=== PATIENT | male | born 1975 | race African-American/Black ===

== ENCOUNTER 2018-11-24 14:34 | Emergency (ER) | payer OTHER, BC ==
--- NOTE | 2018-11-24 16:13 | ER Document Report ---
HPI - HPI Patient complains to provider of: finger pain Time Seen by Provider: 11/24/18 16:07 Onset: Just prior to arrival Onset/Duration: Sudden Quality of pain: Achy, Throbbing Severity: Moderate Pain Level: 3 Context: Patient presents emergency department with complaints of right middle finger pain. Patient reports he was at work when he dropped a frozen bag of cheese onto his finger on the back of the table. Patient complains of fingertip pain. No obvious deformity no swelling no erythema. Associated Symptoms: None Exacerbated by: Denies Relieved by: Denies Similar symptoms previously: No Recently seen / treated by doctor: No - CONSTITUTIONAL Constitutional: DENIES: Fever, Chills - EENT EENT: DENIES: Sore Throat, Ear Pain, Eye problems - NEURO Neurology: DENIES: Headache, Weakness, Vision blurred, Dizzinesss / Vertigo - CARDIOVASCULAR Cardiovascular: DENIES: Chest pain - RESPIRATORY Respiratory: DENIES: Trouble Breathing, Coughing - GASTROINTESTINAL Gastrointestinal: DENIES: Abdominal Pain, Black / Bloody Stools - URINARY Urinary: DENIES: Dysuria, Urgency, Frequency - MUSCULOSKELETAL Musculoskeletal: REPORTS: Extremity pain - right 3rd finger Past Medical History - General Information source: Patient - Social History Smoking Status: Unknown if Ever Smoked Chew tobacco use (# tins/day): No Frequency of alcohol use: None Drug Abuse: None Family History: Reviewed & Not Pertinent Patient has suicidal ideation: No Patient has homicidal ideation: No Pulmonary Medical History: Reports: Hx Asthma Renal/ Medical History: Denies: Hx Peritoneal Dialysis Past Surgical History: Reports: Hx Abdominal Surgery - Umbilical hernia repair as a child - Immunizations Hx Diphtheria, Pertussis, Tetanus Vaccination: Yes Vertical Provider Document - CONSTITUTIONAL Agree With Documented VS: Yes Exam Limitations: No Limitations General Appearance: WD/WN, No Apparent Distress - he is laughing smiling no distress - INFECTION CONTROL TRAVEL OUTSIDE OF THE [place] IN LAST 30 DAYS: No - HEENT HEENT: Atraumatic, Normocephalic - NECK Neck: Supple - RESPIRATORY Respiratory: No Respiratory Distress - CARDIOVASCULAR Cardiovascular: Regular Rate - MUSCULOSKELETAL/EXTREMETIES Musculoskeletal/Extremeties: MAEW, FROM, Tender - Right middle finger distally tender to palpation no obvious deformity good cap refill full range of motion no open wounds - NEURO Level of Consciousness: Awake, Alert, Appropriate Motor/Sensory: No Motor Deficit - DERM Integumentary: Warm, Dry Course - Re-evaluation Re-evalutation: 11/24/18 Tuft fracture noted. Splint placed. Patient was instructed on the tuft fracture and given a picture. He was instructed on the importance of follow-up with orthopedics Motrin for pain. He verbalized understanding to all instructions. Dictation of this chart was performed using voice recognition software; therefore, there may be some unintended grammatical errors. - Vital Signs Vital signs: Temp Pulse Resp BP Pulse Ox 98.1 F 73 15 143/88 H 98 11/24/18 15:17 11/24/18 15:17 11/24/18 15:17 11/24/18 15:17 11/24/18 15:17 - Diagnostic Test Radiology reviewed: Image reviewed, Reports reviewed - EXAM DESCRIPTION: FINGER RIGHT COMPLETED DATE/TIME: 11/24/2018 4:21 pm REASON FOR STUDY: right middle finger crush injury COMPARISON: None. NUMBER OF VIEWS: Three views. TECHNIQUE: AP, lateral, and oblique images acquired of the right third finger. LIMITATIONS: None. FINDINGS: MINERALIZATION: Normal. BONES: Minimally displaced fracture of the tuft. No worrisome bone lesions. SOFT TISSUES: No soft tissue swelling. No foreign body. OTHER: No other significant finding. IMPRESSION: MINIMALLY DISPLACED FRACTURE OF THE TUFT OF THE RIGHT 3RD FINGER. COMMENT: SITE OF TRAUMA/COMPLAINT MARKED/STAMP COMPLETED: YES. TECHNICAL DOCUMENTATION: JOB ID: [id number] [employer]- All Rights Reserved Reading location - IP/workstation name: [email or web address]- Procedures - Immobilization Right 3rd digit Pre-Proc Neuro Vasc Exam: Normal Immobilizer type: Finger splint (Static) Performed by: PCT Post-Proc Neuro Vasc Exam: Unchanged from pre-exam Alignment checked and good: Yes Discharge - Discharge Clinical Impression: Right finger crush injury, tuft fracture Condition: Stable Disposition: HOME, SELF-CARE Instructions: Crush Injury ([facility]), Use of Vyry-Wun-Zmphkue Ibuprofen ([facility]), Temporary Splint ([facility]), Tuft Fracture of the Finger ([facility]) Additional Instructions: *You have been evaluated for a finger injury tuft fracture *Maintain the splint for comfort *Rest/Ice/Elevate *Follow up with orthopedics-call for an appointment *Take motrin as indicated *Return to ED for worsening condition, changes, needs Forms: Return to Work
--- NOTE | 2018-11-24 16:31 | RADIOLOGY REPORT (SQ) ---
EXAM DESCRIPTION: FINGER RIGHT COMPLETED DATE/TIME: 11/24/2018 4:21 pm REASON FOR STUDY: right middle finger crush injury COMPARISON: None. NUMBER OF VIEWS: Three views. TECHNIQUE: AP, lateral, and oblique images acquired of the right third finger. LIMITATIONS: None. FINDINGS: MINERALIZATION: Normal. BONES: Minimally displaced fracture of the tuft. No worrisome bone lesions. SOFT TISSUES: No soft tissue swelling. No foreign body. OTHER: No other significant finding. IMPRESSION: MINIMALLY DISPLACED FRACTURE OF THE TUFT OF THE RIGHT 3RD FINGER. COMMENT: SITE OF TRAUMA/COMPLAINT MARKED/STAMP COMPLETED: YES. TECHNICAL DOCUMENTATION: JOB ID: [id number] [employer]- All Rights Reserved Reading location - IP/workstation name: [email or web address]
[2018-11-24 17:16] VITALS: BP 139/91
== END 2018-11-24 17:18 | disposition home or self-care (01) ==
LOC: ER 14:34
DX: S67.192A Crushing injury of right middle finger, initial encounter (principal); S62.632A Displaced fracture of distal phalanx of right middle finger, initial encounter for closed fracture; M79.644 Pain in right finger(s); W20.8XXA Other cause of strike by thrown, projected or falling object, initial encounter; Y93.89 Activity, other specified; Y99.0 Civilian activity done for income or pay; J45.909 Unspecified asthma, uncomplicated
CPT/HCPCS: 99283

== ENCOUNTER 2019-07-26 17:35 | Emergency (ER) | payer BC, OTHER ==
[2019-07-26 17:52] VITALS: BP 136/88
[2019-07-26] MEDS ORDERED: OXYCODONE-ACETAMINOPHEN 5-325 MG TABLET PO ONE (18:06)
[2019-07-26] MEDS ORDERED: CYCLOBENZAPRINE HCL 10 MG TABLET PO ONE (18:06)
--- NOTE | 2019-07-26 18:06 | ER Document Report ---
ED Medical Screen (RME) - General Chief Complaint: Groin Pain Stated Complaint: FALL/LEG PAIN Time Seen by Provider: 07/26/19 18:00 TRAVEL OUTSIDE OF THE [place] IN LAST 30 DAYS: No - Related Data Allergies/Adverse Reactions: No Known Allergies Allergy (Verified 11/24/18 14:44) Past Medical History - Social History Chew tobacco use (# tins/day): No Frequency of alcohol use: None Drug Abuse: None Pulmonary Medical History: Reports: Hx Asthma Renal/ Medical History: Denies: Hx Peritoneal Dialysis Past Surgical History: Reports: Hx Abdominal Surgery - Umbilical hernia repair as a child - Immunizations Hx Diphtheria, Pertussis, Tetanus Vaccination: Yes Physical Exam - Vital signs Vitals: Temp Pulse Resp BP Pulse Ox 97.6 F 75 18 136/88 H 99 07/26/19 17:51 07/26/19 17:51 07/26/19 17:51 07/26/19 17:51 07/26/19 17:51 Course - Vital Signs Vital signs: Temp Pulse Resp BP Pulse Ox 97.6 F 75 18 136/88 H 99 07/26/19 17:51 07/26/19 17:51 07/26/19 17:51 07/26/19 17:51 07/26/19 17:51
--- NOTE | 2019-07-26 18:15 | ER Document Report ---
ED Fall - General Chief Complaint: Groin Pain Stated Complaint: FALL/LEG PAIN Time Seen by Provider: 07/26/19 18:00 Primary Care Provider: [facility] [Provider Group] - Follow up in 1 week TRAVEL OUTSIDE OF THE [place] IN LAST 30 DAYS: No - HPI Notes: 44-year-old male to the emergency department with complaints of right groin pain that began tonight just prior to arrival. States he was walking in [facility] when he slipped on the wet floor and "did a split. He states that since then he has not been able to tolerate walking because of the pain in his groin. He denies any testicular pain. He denies any blunt trauma to his perineum or testicular area. He denies any nausea, vomiting. He denies any hip pain. He has not taken anything prior to arrival. - Related data Allergies/Adverse Reactions: No Known Allergies Allergy (Verified 11/24/18 14:44) Past Medical History - General Information source: Patient - Social History Smoking Status: Never Smoker Chew tobacco use (# tins/day): No Frequency of alcohol use: None Drug Abuse: None Family History: Reviewed & Not Pertinent Patient has suicidal ideation: No Patient has homicidal ideation: No Pulmonary Medical History: Reports: Hx Asthma Renal/ Medical History: Denies: Hx Peritoneal Dialysis Past Surgical History: Reports: Hx Abdominal Surgery - Umbilical hernia repair as a child - Immunizations Hx Diphtheria, Pertussis, Tetanus Vaccination: Yes Review of Systems - Review of Systems Constitutional: denies: Chills, Fever EENT: No symptoms reported Cardiovascular: denies: Chest pain, Palpitations, Heart racing, Orthopnea, Dyspnea, Syncope, Dizziness, Lightheaded Respiratory: denies: Cough, Short of breath Gastrointestinal: denies: Abdominal pain, Diarrhea, Nausea, Vomiting Genitourinary: denies: Frequency, Flank pain, Hematuria, Incontinence Musculoskeletal: See HPI, Muscle pain - Right groin strain. denies: Back pain Skin: No symptoms reported Hematologic/Lymphatic: No symptoms reported Neurological/Psychological: No symptoms reported -: Yes All other systems reviewed and negative Physical Exam - Vital signs Vitals: Temp Pulse Resp BP Pulse Ox 97.6 F 75 18 136/88 H 99 07/26/19 17:51 07/26/19 17:51 07/26/19 17:51 07/26/19 17:51 07/26/19 17:51 Interpretation: Normal - General General appearance: Appears well, Alert - HEENT Head: Normocephalic, Atraumatic Eyes: Normal Pupils: PERRL - Respiratory Respiratory status: No respiratory distress Chest status: Nontender Breath sounds: Normal Chest palpation: Normal - Cardiovascular Rhythm: Regular Heart sounds: Normal auscultation Murmur: No - Abdominal Inspection: Morbidly Obese Distension: No distension Bowel sounds: Normal Tenderness: Nontender Organomegaly: No organomegaly - Back Back: Normal, Nontender - Extremities General lower extremity: No: Glen's sign Notes: There is tenderness to palpation to the medial aspect of the right upper leg. Adduction and abduction increase the pain in the groin. Hip flexion increases the pain as well. There is no edema, evidence of wound, patient states that when he tries ambulate it is too much pain. He does still retain his strength in bilateral lower extremities against resistance with 5 out of 5 strength in flexion, distention. DP pulses are intact and equal. Cap refill is less than 2 seconds in all toes. - Neurological Neuro grossly intact: Yes Cognition: Normal Orientation: AAOx4 Karissa Coma Scale Eye Opening: Spontaneous Karissa Coma Scale Verbal: Oriented [place] Coma Scale Motor: Obeys Commands Karissa Coma Scale Total: 15 Speech: Normal Motor strength normal: LUE, RUE, LLE, RLE Sensory: Normal - Psychological Associated symptoms: Normal affect, Normal mood - Skin Skin Temperature: Warm Skin Moisture: Dry Skin Color: Normal Course - Re-evaluation Re-evalutation: 07/26/19 Impression: Right groin strain. Patient is better after getting medicines here in the emergency department is able to ambulate about the department. Will discharge home. Urged to return if any worsening symptoms. Patient agrees PCP follow-up - Vital Signs Vital signs: Temp Pulse Resp BP Pulse Ox 97.6 F 75 18 136/88 H 99 07/26/19 17:51 07/26/19 17:51 07/26/19 17:51 07/26/19 17:51 07/26/19 17:51 Discharge - Discharge Clinical Impression: Strain of muscle of right groin region Condition: Stable Disposition: HOME, SELF-CARE Instructions: Muscle Strain ([facility]) Additional Instructions: ALTERNATE BETWEEN ICE AND HEAT. USE MEDICINES PRESCRIBED. RETURN IF WORSE. FOLLOW UP WITH PRIMARY CARE. Prescriptions: Cyclobenzaprine HCl [Flexeril 10 mg Tablet] 10 mg PO TID #15 tablet Oxycodone HCl/Acetaminophen [Percocet 5-325 mg Tablet] 1 tab PO Q6H PRN #10 tablet PRN Reason: Forms: Return to Work Referrals: [facility] [Provider Group] - Follow up in 1 week
== END 2019-07-26 18:45 | disposition home or self-care (01) ==
LOC: ER 17:35
DX: S39.011A Strain of muscle, fascia and tendon of abdomen, initial encounter (principal); W01.0XXA Fall on same level from slipping, tripping and stumbling without subsequent striking against object, initial encounter; Y92.512 Supermarket, store or market as the place of occurrence of the external cause